=== PATIENT | female | born 1960 | race Caucasian/White ===

== ENCOUNTER 2017-12-29 11:51 | Emergency (ER) | payer MEDICAID ==
[~2017-12-29] VITALS: Ht 160 cm; Wt 58.5 kg
[~2017-12-29 11:51] MED LIST: THYROID MED
[2017-12-29 12:08] VITALS: BP 130/81
[2017-12-29] MEDS ORDERED: LEVO125T5 PO (12:54)
[2017-12-29] MEDS ORDERED: NAPR-685 PO (12:54)
[2017-12-29] MEDS ORDERED: HYDROcodone/APAP 5/325 TABLET ONE (13:49)
[2017-12-29] MEDS ORDERED: HYDROcodone/APAP 5/325 TABLET PO ONE (14:00)
== END 2017-12-29 14:27 | disposition home or self-care (01) ==
LOC: ED 13:22
DX: H66.001 Acute suppurative otitis media without spontaneous rupture of ear drum, right ear (principal); R91.1 Solitary pulmonary nodule; L03.211 Cellulitis of face; E03.9 Hypothyroidism, unspecified; Z86.19 Personal history of other infectious and parasitic diseases; Z88.8 Allergy status to other drugs, medicaments and biological substances
CPT/HCPCS: 71046; 99284

== ENCOUNTER 2018-01-22 08:24 | Emergency (ER) | payer MEDICAID ==
[~2018-01-22] VITALS: Ht 160 cm; Wt 61.8 kg
[~2018-01-22 08:24] MED LIST changes: +LEVO125T5 PO; +NAPR-685 PO
[2018-01-22 08:29] VITALS: BP 122/86
== END 2018-01-22 09:16 | disposition home or self-care (01) ==
LOC: ED 09:10
DX: H01.002 Unspecified blepharitis right lower eyelid (principal); E03.9 Hypothyroidism, unspecified; F32.9 Major depressive disorder, single episode, unspecified; F17.200 Nicotine dependence, unspecified, uncomplicated
CPT/HCPCS: 99283

== ENCOUNTER 2018-03-06 10:39 | Emergency (ER) | payer MEDICAID ==
[~2018-03-06] VITALS: Ht 160 cm; Wt 63.0 kg
[2018-03-06 10:53] VITALS: BP 124/86
== END 2018-03-06 11:23 | disposition home or self-care (01) ==
LOC: ED 11:17
DX: K08.89 Other specified disorders of teeth and supporting structures (principal); E03.9 Hypothyroidism, unspecified; F17.210 Nicotine dependence, cigarettes, uncomplicated; F32.9 Major depressive disorder, single episode, unspecified; Z86.19 Personal history of other infectious and parasitic diseases; Z72.9 Problem related to lifestyle, unspecified
CPT/HCPCS: 99283

== ENCOUNTER 2018-06-13 07:42 | Emergency (ER) | payer BC, MEDICAID, OTHER ==
[~2018-06-13] VITALS: Ht 160 cm; Wt 65.0 kg
--- NOTE | 2018-06-13 08:06 | NUR ---
PT PRESENTS TO ED WITH C/O COUGH, CONGESTION AND BAD TASTE IN MOUTH, PRESENT FOR LAST 1-2 WEEKS. PT STATES SHE WAS TREATED WITH MEDICATIONS FOR BRONCHITIS AT [facility], WHICH DID NOT IMPROVE SYMPTOMS. PT A&O, RESPS EVEN AND UNLABORED, CHACHO QUARLES AT BEDSIDE TO ASSESS.
--- NOTE | 2018-06-13 08:22 | NUR ---
PT IN XRAY
--- NOTE | 2018-06-13 09:15 | NUR ---
pt resting on gurney, resps even and unlabored, nadn. cxr resulted, awaiting MD and dispo.
--- NOTE | 2018-06-13 09:59 | NUR ---
PT BECOMING IRRITATED REGARDING WAIT TIME, REQUESTING DC. CHACHO QUARLES AND NICK KO NOTIFIED.
[2018-06-13 10:03] VITALS: BP 135/85
--- NOTE | 2018-06-13 10:09 | NUR ---
pt given dc instructions and script. pt educated regarding dc rx. pt a&o, resps even and unlabored, amb to dc desk with steady gait. nadn at dc.
== END 2018-06-13 10:10 | disposition home or self-care (01) ==
LOC: ED 08:44
DX: J01.00 Acute maxillary sinusitis, unspecified (principal); E03.9 Hypothyroidism, unspecified; Z86.19 Personal history of other infectious and parasitic diseases
CPT/HCPCS: 71046; 99283